=== PATIENT | female | born 1980 | race Caucasian/White ===

== ENCOUNTER → 2016-09-25 | Outpatient (CLI) | payer OTHER ==
[~2016-09-25] MED LIST: CHOL2000 PO; CYAN100014 PO; ENOX80SY5 SQ; LEVO50TA5 PO; MULT-115 PO; OMEG500C3 PO; WARF5TAB PO; [UNRECOGNIZED DRUG - CODE] PO
[2016-09-25 08:41] LABS: PTH INTACT INTERPRETATION ** Comment **
[2016-09-25 09:13] LABS: ASPARTATE AMINO TRANSFERASE 14 U/L (15-37); BLOOD UREA NITROGEN 12 mg/dL (7-18)
[2016-09-25 09:19] LABS: PARATHYROID HORMONE INTACT 85.1 pg/mL (14-72)
== END | disposition home or self-care (01) ==
LOC: LAB 08:35
PROVIDERS: ATTEND Internal Medicine Endocrinology, Diabetes & Metabolism
DX: E21.3 Hyperparathyroidism, unspecified (principal); E55.9 Vitamin D deficiency, unspecified; R79.89 Other specified abnormal findings of blood chemistry
CPT/HCPCS: 36415; 80053; 81050; 82306; 82310; 82570; 82652; 83735; 83970; 84100; 84439; 84443

== ENCOUNTER 2016-12-05 14:05 | Emergency (ER) | payer OTHER ==
[~2016-12-05] VITALS: Ht 162.6 cm; Wt 82.0 kg
[2016-12-05] MEDS ORDERED: SODIUM CHLORIDE 0.9% 1,000 ML IV ONE (14:17)
[2016-12-05] MEDS ORDERED: ONDANSETRON 2MG/ML, 2ML ONE (14:26)
[2016-12-05] MEDS ORDERED: KETOROLAC 30 MG/1 ML ONE (14:26)
[2016-12-05] MEDS ORDERED: SODIUM CHLORIDE FLUSH 10ML SYR IVF ONE (14:30)
[2016-12-05] MEDS ORDERED: KETOROLAC 30 MG/1 ML IVPush ONE (14:30)
[2016-12-05] MEDS ORDERED: ONDANSETRON 2MG/ML, 2ML IVPush ONE (14:30)
[2016-12-05] MEDS ORDERED: SODIUM CHLORIDE 0.9% 1,000ML IVBOLUS ONE (14:30)
[2016-12-05 14:41] LABS: HEMOGLOBIN 7.5 g/dL (11.7-16.4); WHITE BLOOD COUNT 7.2 x10^3/uL (3.4-10)
[2016-12-05 14:42] LABS: DIFF TOTAL CELLS COUNTED 100 CELL DIFF
[2016-12-05 14:47] LABS: BLOOD UREA NITROGEN 11 mg/dL (7-18)
[2016-12-05 15:12] LABS: ANISOCYTOSIS 2+; OVALOCYTES 1+; POLYCHROMASIA 1+; VERIFY COUNTS? YES
[2016-12-05 15:13] LABS: HYPOCHROMIA 2+; TARGET CELLS 1+
[2016-12-05] MEDS ORDERED: HYDROmorphone 1 MG/ML, 1ML ONE (15:14)
[2016-12-05] MEDS: HYDROmorphone 1 MG/ML, 1ML IVPush PRN ×2 (15:16→15:20)
[2016-12-05 16:14] VITALS: BP 112/48
== END 2016-12-05 16:15 ==
LOC: ED 16:09
DX: N30.90 Cystitis, unspecified without hematuria (principal); N23 Unspecified renal colic; G89.29 Other chronic pain; D50.9 Iron deficiency anemia, unspecified; E03.9 Hypothyroidism, unspecified
CPT/HCPCS: 36415; 74176; 80048; 81001; 82040; 85025; 87077; 87086; 87147; 96361; 96374; 96375; 99285; J1170; J1885; J2405; J7030; 87186

== ENCOUNTER → 2017-03-22 | Outpatient (CLI) | payer OTHER ==
[2017-03-22 15:24] LABS: ALANINE AMINOTRANSFERASE 19 U/L (12-78); ALBUMIN 3.7 g/dL (3.4-5.0); ANION GAP 7 mmol/L (5-15); CALCIUM 8.2 mg/dL (8.5-10.1); CHLORIDE 108 mmol/L (98-107); CREATININE 0.61 mg/dL (0.55-1.02); IRON LEVEL 52 mcg/dL (50-170)
[2017-03-22 15:27] LABS: % IRON SATURATION 17 % (20-55); ALKALINE PHOSPHATASE 86 U/L (45-117); BILIRUBIN,TOTAL 0.3 mg/dL (0.2-1.0); TOTAL IRON BINDING CAPACITY 314 mcg/dL (250-450)
== END ==
LOC: LAB 14:55
PROVIDERS: ATTEND Internal Medicine Hematology & Oncology
DX: D50.8 Other iron deficiency anemias (principal); D64.9 Anemia, unspecified
CPT/HCPCS: 36415; 80053; 82728; 83540; 83550

== ENCOUNTER → 2017-06-19 | Outpatient (CLI) | payer OTHER ==
[~2017-06-19] MED LIST changes: +DIPH25CA61 PO; +GADOBUTROL 10 MMOL/10 ML PFS ONE
== END | disposition home or self-care (01) ==
LOC: RAD 15:33
PROVIDERS: ATTEND Family Medicine
DX: M25.511 Pain in right shoulder (principal)
CPT/HCPCS: 73223; A9585

== ENCOUNTER → 2017-07-26 | Outpatient (CLI) | payer OTHER ==
[~2017-07-26] MED LIST changes: -GADOBUTROL 10 MMOL/10 ML PFS ONE
[2017-07-26 08:50] LABS: BASOPHILS # (AUTO) 0.02 x10^3/uL (0-0.1); BASOPHILS % (AUTO) 0 % (0-1); EOSINOPHILS # (AUTO) 0.02 x10^3/uL (0-0.4); EOSINOPHILS % (AUTO) 0 % (1-7); LYMPHOCYTES # (AUTO) 1.88 x10^3/uL (1-3.4); LYMPHOCYTES % (AUTO) 24 % (22-44); MD NO; MEAN CORPUSCULAR HEMOGLOBIN 29.1 pg (27.0-34.8); MEAN CORPUSCULAR HGB CONC 33.3 g/dL (32.4-35.8); MEAN CORPUSCULAR VOLUME 87.4 fL (80-100); MEAN PLATELET VOLUME 7.5 fL (7.4-10.4); MONOCYTES # (AUTO) 0.35 x10^3/uL (0.2-0.8); MONOCYTES % (AUTO) 4 % (2-9); NEUTROPHILS # (AUTO) 5.72 x10^3/uL (1.8-6.8); NEUTROPHILS % (AUTO) 72 % (42-75); PLATELET COUNT 279 x10^3/uL (130-400); RED BLOOD COUNT 4.47 x10^6/uL (3.82-5.3); RED CELL DISTRIBUTION WIDTH 13.8 % (9.6-15.2)
== END | disposition home or self-care (01) ==
LOC: LAB 08:39
PROVIDERS: ATTEND Internal Medicine Hematology & Oncology
DX: D50.0 Iron deficiency anemia secondary to blood loss (chronic) (principal); D50.8 Other iron deficiency anemias
CPT/HCPCS: 36415; 82728; 85025

== ENCOUNTER → 2017-09-12 | Outpatient (CLI) | payer OTHER ==
[2017-09-12 10:20] LABS: BASOPHILS # (AUTO) 0.02 x10^3/uL (0-0.1); BASOPHILS % (AUTO) 0 % (0-1); EOSINOPHILS # (AUTO) 0.08 x10^3/uL (0-0.4); EOSINOPHILS % (AUTO) 1 % (1-7); LYMPHOCYTES # (AUTO) 2.17 x10^3/uL (1-3.4); LYMPHOCYTES % (AUTO) 30 % (22-44); MD NO; MEAN CORPUSCULAR HEMOGLOBIN 29.4 pg (27.0-34.8); MEAN CORPUSCULAR HGB CONC 33.5 g/dL (32.4-35.8); MEAN CORPUSCULAR VOLUME 87.8 fL (80-100); MEAN PLATELET VOLUME 8.2 fL (7.4-10.4); MONOCYTES # (AUTO) 0.35 x10^3/uL (0.2-0.8); MONOCYTES % (AUTO) 5 % (2-9); NEUTROPHILS # (AUTO) 4.55 x10^3/uL (1.8-6.8); NEUTROPHILS % (AUTO) 64 % (42-75); PLATELET COUNT 218 x10^3/uL (130-400); RED BLOOD COUNT 4.85 x10^6/uL (3.82-5.3); RED CELL DISTRIBUTION WIDTH 15.4 % (9.6-15.2)
[2017-09-12 10:31] LABS: ALANINE AMINOTRANSFERASE 22 U/L (12-78); ALBUMIN 3.8 g/dL (3.4-5.0); ANION GAP 5 mmol/L (5-15); CALCIUM 8.3 mg/dL (8.5-10.1); CHLORIDE 110 mmol/L (98-107); CREATININE 0.61 mg/dL (0.55-1.02)
[2017-09-12 10:33] LABS: ALKALINE PHOSPHATASE 77 U/L (45-117); BILIRUBIN,TOTAL 0.3 mg/dL (0.2-1.0); TOTAL PROTEIN 7.2 g/dL (6.4-8.2)
== END | disposition home or self-care (01) ==
LOC: STAR 09:11
PROVIDERS: ATTEND Specialist
DX: Z01.818 Encounter for other preprocedural examination (principal); B33.8 Other specified viral diseases; N93.9 Abnormal uterine and vaginal bleeding, unspecified; Z88.5 Allergy status to narcotic agent; Z88.0 Allergy status to penicillin; Z88.8 Allergy status to other drugs, medicaments and biological substances
CPT/HCPCS: 36415; 80053; 85025; 93005

== ENCOUNTER 2017-09-19 10:13 | Inpatient (IN) | payer OTHER ==
[2017-09-12 10:00] VITALS: BP 131/87
[~2017-09-19] VITALS: Ht 162.6 cm; Wt 93.0 kg
[2017-09-19] MEDS ORDERED: LACTATED RINGERS 1,000 ML IV SCH (10:47)
[2017-09-19 11:01] LABS: HCG UR SG 1.027 (1.003-1.030)
[2017-09-19] MEDS ORDERED: THROMBIN 5,000 UNIT VIAL TP ONE (11:44)
[2017-09-19] MEDS ORDERED: METHYLENE BLUE 10 MG/ML 10ML ONE (11:44)
[2017-09-19] MEDS ORDERED: SCOPOLAMINE PATCH, 1.5MG PATCH.TD72 TD ONE ×2 (12:00→12:15)
[2017-09-19] MEDS ORDERED: OxyconTIN ER 10 MG TAB.ER PO ONE (12:00)
[2017-09-19] MEDS ORDERED: ACETAMINOPHEN 500 MG TABLET PO ONE (12:00)
[2017-09-19] MEDS ORDERED: GABAPENTIN 300 MG CAPSULE PO ONE (12:00)
[2017-09-19] MEDS ORDERED: FENTANYL PF 250 MCG/5ML ONE ×2 (12:01→13:14)
[2017-09-19] MEDS ORDERED: MIDAZOLAM 1 MG/ML, 2ML ONE (12:01)
[2017-09-19] MEDS ORDERED: LIDOCAINE-MPF 2% ,5ML ONE (12:02)
[2017-09-19] MEDS ORDERED: PROPOFOL 10 MG/ML, 20ML ONE (12:02)
[2017-09-19] MEDS ORDERED: ROCURONIUM 10MG/ML,5ML ONE (12:02)
[2017-09-19] MEDS ORDERED: DEXAMETHASONE 4 MG/ML, 1ML ONE ×2 (12:03)
[2017-09-19] MEDS ORDERED: CEFOTETAN PMX 2GM/50ML 50 ML ONE (12:03)
[2017-09-19] MEDS ORDERED: BUPIVACAINE/PF 0.5% ONE (12:04)
[2017-09-19] MEDS ORDERED: EPINEPHRINE 1 MG/ML, 1ML ONE (12:06)
[2017-09-19] MEDS ORDERED: ACETAMINOPHEN 500 MG TABLET ONE (12:15)
[2017-09-19] MEDS ORDERED: GABAPENTIN 300 MG CAPSULE ONE (12:15)
[2017-09-19] MEDS ORDERED: PHENYLEPHRINE 10 MG/ML ONE (12:30)
[2017-09-19] MEDS ORDERED: MEPERIDINE/PF 25MG/0.5ML IVPush PRN (13:30)
[2017-09-19] MEDS ORDERED: OXYcodone 5 MG/5 ML ORAL.SOL UDC PO PRN (13:30)
[2017-09-19] MEDS ORDERED: PROMETHAZINE 25 MG/ML, 1ML IV PRN (13:30)
[2017-09-19] MEDS ORDERED: LABETALOL 5MG/ML, 20ML IV PRN (13:30)
[2017-09-19] MEDS ORDERED: FENTANYL PF 100 MCG/2ML IV PRN (13:30)
[2017-09-19] MEDS ORDERED: HALOPERIDOL 5 MG/ML IV PRN (13:30)
[2017-09-19] MEDS ORDERED: DIAZEPAM 5 MG/ML, 2ML IVPush PRN (13:30)
[2017-09-19] MEDS ORDERED: hydrALAzine 20 MG/ML, 1ML IV PRN (13:30)
[2017-09-19] MEDS ORDERED: ONDANSETRON 2MG/ML, 2ML ONE ×2 (14:00)
[2017-09-19] MEDS ORDERED: hydrALAzine 20 MG/ML, 1ML ONE (15:01)
[2017-09-19] MEDS ORDERED: HYDROmorphone 2 MG/ML, 1ML ONE (15:05)
[2017-09-19] MEDS: HYDROmorphone 1 MG/ML, 1ML IV PRN ×3 (15:07→15:30)
[2017-09-19] MEDS ORDERED: KETOROLAC 30 MG/1 ML ONE (15:20)
[2017-09-19] MEDS ORDERED: KETOROLAC 30 MG/1 ML IVPush ONE (15:30)
[2017-09-19] MEDS: HYDROmorphone 2MG TABLET PO PRN (17:54)
[2017-09-19] MEDS: KETOROLAC 30 MG/1 ML IV SCH (17:54)
[2017-09-19] MEDS ORDERED: ONDANSETRON 2MG/ML, 2ML IV PRN (18:00)
[2017-09-19] MEDS ORDERED: HYDROmorphone 2 MG/ML, 1ML IM PRN (18:00)
[2017-09-19] MEDS: POTASSIUM CHLORIDE 20 MEQ in D5%-LACTATED RINGERS 1,000 ML IV SCH (18:24)
[2017-09-19 20:00] VITALS: BP 143/83
[2017-09-19] MEDS ORDERED: CEFAZOLIN PMX 2GM/100ML 100 ML IVPB SCH (20:30)
[2017-09-19] MEDS ORDERED: CEFAZOLIN 2,000 MG in SODIUM CHLORIDE 0.9% 50 ML IVPB SCH (22:00)
[2017-09-19] MEDS: SIMETHICONE 80 MG CHEW TAB PO SCH (22:15)
[2017-09-19] MEDS: HYDROmorphone 2 MG/ML, 1ML IV PRN (22:16)
[2017-09-20 00:25] VITALS: BP 153/75
[2017-09-20] MEDS: HYDROmorphone 2MG TABLET PO PRN (00:26)
[2017-09-20] MEDS: KETOROLAC 30 MG/1 ML IV SCH ×3 (00:27→11:51)
[2017-09-20] MEDS: POTASSIUM CHLORIDE 20 MEQ in D5%-LACTATED RINGERS 1,000 ML IV SCH ×3 (02:10→17:45)
[2017-09-20 04:00] VITALS: BP 127/77
[2017-09-20] MEDS: HYDROmorphone 2 MG/ML, 1ML IV PRN (04:50)
[2017-09-20 07:20] VITALS: BP 133/83
[2017-09-20] MEDS: SIMETHICONE 80 MG CHEW TAB PO SCH ×3 (08:40→20:15)
[2017-09-20] MEDS ORDERED: OXYcodone 5 MG/5 ML ORAL.SOL UDC PO PRN (09:00)
[2017-09-20] MEDS: OXYcodone 5 MG/5 ML ORAL.SOL UDC PO PRN ×4 (09:03→18:55)
[2017-09-20] MEDS: ENOXAPARIN 40 MG/0.4 ML SQ SCH (11:53)
[2017-09-20 12:31] VITALS: BP 135/79
[2017-09-20 20:02] VITALS: BP 125/71
[2017-09-20] MEDS ORDERED: HYDROmorphone 4MG TABLET PO PRN (21:00)
[2017-09-20] MEDS ORDERED: HYDROcodone/APAP 7.5-325MG/15ML UDC PO PRN (21:00)
[2017-09-21] MEDS: HYDROmorphone 2MG TABLET PO PRN ×5 (00:34→12:52)
[2017-09-21] MEDS: POTASSIUM CHLORIDE 20 MEQ in D5%-LACTATED RINGERS 1,000 ML IV SCH ×2 (01:50→09:02)
[2017-09-21 03:07] VITALS: BP 122/68
[2017-09-21 08:36] VITALS: BP 143/92
[2017-09-21] MEDS: SIMETHICONE 80 MG CHEW TAB PO SCH (09:01)
[2017-09-21 12:52] VITALS: BP 151/88
[2017-09-21] MEDS: ENOXAPARIN 40 MG/0.4 ML SQ SCH (12:53)
[2017-09-21] MEDS ORDERED: IBUP200T49 PO (13:40)
[2017-09-21] MEDS ORDERED: ENOX40SY4 SQ (13:41)
[2017-09-21] MEDS ORDERED: HYDR2TAB29 PO (13:42)
== END 2017-09-21 14:02 | disposition home or self-care (01) | DRG 742 ==
LOC: ORIP 10:13 → 4NOR 17:05 → DCLOUNGE 09-21 13:54
PROVIDERS: ADMIT Specialist; ATTEND Specialist
PROC: 0UT70ZZ Resection of Bilateral Fallopian Tubes, Open Approach (ICD-10-PCS; 2017-09-19)
PROC: 0UT90ZZ Resection of Uterus, Open Approach (ICD-10-PCS; principal; 2017-09-19 12:30)
DX: N80.0 Endometriosis of uterus (principal); D68.51 Activated protein C resistance; N92.0 Excessive and frequent menstruation with regular cycle; Z82.0 Family history of epilepsy and other diseases of the nervous system; Z82.3 Family history of stroke; Z82.49 Family history of ischemic heart disease and other diseases of the circulatory system; Z86.711 Personal history of pulmonary embolism; Z88.5 Allergy status to narcotic agent; Z98.1 Arthrodesis status; Z98.891 History of uterine scar from previous surgery; Z88.0 Allergy status to penicillin; Z88.6 Allergy status to analgesic agent; Z91.041 Radiographic dye allergy status; D50.9 Iron deficiency anemia, unspecified; Z98.84 Bariatric surgery status
CPT/HCPCS: 36415; J7121; 81025; 85014; 85018; 86850; 86900; 88307; J0171; J0690; J1100; J1170; J1650; J1885; J2250; J2405; J2704; J3010; J3360; J3480; J3490; J0360; J2370; J7120; Q9968; S0074

== ENCOUNTER → 2018-01-16 | Outpatient (CLI) | payer OTHER ==
[~2018-01-16] MED LIST changes: +ENOX40SY4 SQ; +HYDR2TAB29 PO; +IBUP200T49 PO
[2018-01-16 08:54] LABS: HCT (SEDRATE) 43.6 % (34.6-47.8)
[2018-01-16 09:06] LABS: ALBUMIN 3.7 g/dL (3.4-5.0); ANION GAP 9 mmol/L (5-15); CALCIUM 8.4 mg/dL (8.5-10.1); CHLORIDE 110 mmol/L (98-107)
[2018-01-16 09:18] LABS: ALANINE AMINOTRANSFERASE 22 U/L (12-78); ALKALINE PHOSPHATASE 87 U/L (45-117); BILIRUBIN,TOTAL 0.4 mg/dL (0.2-1.0); C-REACTIVE PROTEIN, QUANT 0.06 mg/dL (0.02-0.49); CREATININE 0.62 mg/dL (0.55-1.02); TOTAL PROTEIN 6.9 g/dL (6.4-8.2)
[2018-01-16 09:34] LABS: FREE T4 (FREE THYROXINE) 0.86 ng/dL (0.76-1.46)
[2018-01-17 14:18] LABS: ANA SCREEN NEGATIVE (Negative)
== END | disposition home or self-care (01) ==
LOC: LAB 08:32
PROVIDERS: ATTEND Family Medicine
DX: R53.82 Chronic fatigue, unspecified (principal)
CPT/HCPCS: 36415; 80053; 83516; 84439; 84443; 85651; 86038; 86140; 86160; 86162; 86430

== ENCOUNTER → 2018-05-23 | Outpatient (CLI) | payer OTHER ==
[2018-05-23 11:08] LABS: BASOPHILS # (AUTO) 0.03 x10^3/uL (0-0.1); BASOPHILS % (AUTO) 0 % (0-1); EOSINOPHILS # (AUTO) 0.03 x10^3/uL (0-0.4); EOSINOPHILS % (AUTO) 0 % (1-7); LYMPHOCYTES # (AUTO) 2.02 x10^3/uL (1-3.4); LYMPHOCYTES % (AUTO) 21 % (22-44); MD NO; MEAN CORPUSCULAR HEMOGLOBIN 29.4 pg (27.0-34.8); MEAN PLATELET VOLUME 7.9 fL (7.4-10.4); MONOCYTES # (AUTO) 0.46 x10^3/uL (0.2-0.8); MONOCYTES % (AUTO) 5 % (2-9); NEUTROPHILS # (AUTO) 7.03 x10^3/uL (1.8-6.8); NEUTROPHILS % (AUTO) 73 % (42-75); PLATELET COUNT 296 x10^3/uL (130-400); RED BLOOD COUNT 4.97 x10^6/uL (3.82-5.3); RED CELL DISTRIBUTION WIDTH 12.6 % (9.6-15.2)
== END | disposition home or self-care (01) ==
LOC: LAB 10:54
PROVIDERS: ATTEND Family Medicine
DX: D64.9 Anemia, unspecified (principal)
CPT/HCPCS: 36415; 82728; 85025

== ENCOUNTER 2018-06-05 12:29 | Emergency (ER) | payer OTHER ==
[~2018-06-05] VITALS: Ht 162.6 cm; Wt 86.4 kg
[2018-06-05 12:40] VITALS: BP 143/78
[2018-06-05] MEDS ORDERED: LEVO75TA5 PO (12:48)
[2018-06-05] MEDS ORDERED: CITA40TA12 PO (12:48)
--- NOTE | 2018-06-05 13:05 | NUR ---
Patient/Caregiver given discharge instructions and they have confirmed that they understand the instructions. Patient ambulatory with steady gait.
== END 2018-06-05 13:06 | disposition home or self-care (01) ==
LOC: ED 13:05
DX: L02.414 Cutaneous abscess of left upper limb (principal); E03.9 Hypothyroidism, unspecified
CPT/HCPCS: 99283

== ENCOUNTER 2019-04-30 08:21 | Emergency (ER) | payer OTHER ==
[~2019-04-30] VITALS: Ht 162.6 cm; Wt 97.7 kg
[~2019-04-30 08:21] MED LIST changes: +CITA40TA12 PO; +LEVO75TA5 PO
[2019-04-30] MEDS ORDERED: HYDROmorphone 1 MG/ML, 1ML INJ ONE ×2 (08:54→13:35)
[2019-04-30] MEDS ORDERED: ONDANSETRON 2MG/ML, 2ML ONE ×2 (08:54→12:27)
[2019-04-30] MEDS ORDERED: ONDANSETRON 2MG/ML, 2ML IVPush ONE ×2 (09:00→12:30)
[2019-04-30] MEDS ORDERED: SODIUM CHLORIDE FLUSH 10ML SYR IVF ONE (09:00)
[2019-04-30] MEDS ORDERED: SODIUM CHLORIDE 0.9% 1,000ML IVBOLUS ONE (09:00)
[2019-04-30] MEDS: HYDROmorphone 2 MG/ML, 1ML IVPush PRN ×2 (09:13→13:37)
--- NOTE | 2019-04-30 09:16 | NUR ---
pt in with c/o abd pain that is "off the charts " when she eats results in Vommitting and diarrhea after eating. pt verbalized that she had perviously vistited urgent care and provided a stool sample and waiting results. pt states last "normal stool" was a 10 days ago. medicated per emar
[2019-04-30 09:32] LABS: BASOPHILS # (AUTO) 0.02 x10^3/uL (0-0.1); BASOPHILS % (AUTO) 0 % (0-1); EOSINOPHILS # (AUTO) 0.03 x10^3/uL (0-0.4); EOSINOPHILS % (AUTO) 0 % (1-7); LYMPHOCYTES # (AUTO) 1.64 x10^3/uL (1-3.4); LYMPHOCYTES % (AUTO) 20 % (22-44); MD NO; MEAN CORPUSCULAR HEMOGLOBIN 30.6 pg (27.0-34.8); MEAN CORPUSCULAR HGB CONC 33.2 g/dL (32.4-35.8); MEAN CORPUSCULAR VOLUME 92.2 fL (80-100); MEAN PLATELET VOLUME 8.1 fL (7.4-10.4); MONOCYTES # (AUTO) 0.29 x10^3/uL (0.2-0.8); MONOCYTES % (AUTO) 4 % (2-9); NEUTROPHILS # (AUTO) 6.14 x10^3/uL (1.8-6.8); NEUTROPHILS % (AUTO) 76 % (42-75); PLATELET COUNT 247 x10^3/uL (130-400); RED BLOOD COUNT 5.04 x10^6/uL (3.82-5.3); RED CELL DISTRIBUTION WIDTH 12.5 % (9.6-15.2)
[2019-04-30] MEDS ORDERED: ASPI-496 PO (09:45)
[2019-04-30 09:46] LABS: ALANINE AMINOTRANSFERASE 28 U/L (12-78); ALBUMIN 3.8 g/dL (3.4-5.0); ANION GAP 8 mmol/L (5-15); CALCIUM 9.1 mg/dL (8.5-10.1); CHLORIDE 108 mmol/L (98-107); CREATININE 0.79 mg/dL (0.55-1.02)
[2019-04-30 09:48] LABS: ALKALINE PHOSPHATASE 80 U/L (45-117); BILIRUBIN,TOTAL 0.4 mg/dL (0.2-1.0); TOTAL PROTEIN 7.8 g/dL (6.4-8.2)
--- NOTE | 2019-04-30 11:31 | NUR ---
pt up to the bathroom. pt ambulated with a steady gait.
--- NOTE | 2019-04-30 12:10 | NUR ---
TASK RN: PT TO CT AT THIS TIME. UA COLLECTED AND SENT. STOOL STILL UNAVAILABLE.
[2019-04-30] MEDS ORDERED: OMNIPAQUE 350 MG/ML, 100ML BOTTLE ONE (12:25)
[2019-04-30 12:49] LABS: CULTURE INDICATED? YES; MICROSCOPIC INDICATED
[2019-04-30] MEDS ORDERED: CEFTRIAXONE PMX 1GM/50ML 50 ML ONE (13:24)
[2019-04-30] MEDS ORDERED: CEFTRIAXONE PMX 1GM/50ML 50 ML IV ONE (13:30)
--- NOTE | 2019-04-30 14:05 | NUR ---
Discussed discharge paperwork with pt. IV ABX currently infusing. pt verbalized understanding of discharge orders and need to follow up.
[2019-04-30 14:18] VITALS: BP 145/84
--- NOTE | 2019-04-30 14:41 | NUR ---
pt ambulated out of ER in no distress and with a steady gait.
== END 2019-04-30 14:42 | disposition home or self-care (01) ==
LOC: ED 09:22
DX: K52.9 Noninfective gastroenteritis and colitis, unspecified (principal); N30.00 Acute cystitis without hematuria; R11.2 Nausea with vomiting, unspecified; E03.9 Hypothyroidism, unspecified; Z90.49 Acquired absence of other specified parts of digestive tract; Z90.710 Acquired absence of both cervix and uterus
CPT/HCPCS: 36415; 74177; 80053; 81001; 83690; 85025; 87077; 87086; 87186; 96361; 96365; 96375; 96376; 99285; J0696; J1170; J2405; J7030; Q9967